=== PATIENT | female | born 1940 | race Caucasian/White ===

== ENCOUNTER 2019-09-24 17:20 | Inpatient (IN) | payer OTHER ==
[~2019-09-24] VITALS: Ht 165.1 cm; Wt 51.7 kg
[2019-09-24 17:00] VITALS: BP 151/80
--- NOTE | 2019-09-24 17:00 | NUR ---
PT ARRIVED VIA AMBULANCE TO ROOM. PT THINKS SHE IS HERE TO GET CHECKED FOR COVID. PT DID KNOW SHE WAS AT [facility] AND THAT IT WAS SEPTEMBER. PT KNOWS HER BIRTHDAY IS COMING UP. PT STATED SHE IS ONE OF 9. SHE ACKNOWLEDGE OF HER HAVING SHORT-TERM MEMORY LOSS. PT RESIDES AT [facility] AND THOUGHT SHE SAW SOME KITTENS UNDER THE BED AND TRIED TO ROUND THEM UP AND FEEL. SHE STATED SHE HAS SEEING KITTENS. PT GETS AROUND VIA W/C. PT ABLE TO BEAR WEIGHT IN ORDER TO GET TO W/C.
--- NOTE | 2019-09-24 17:30 | NUR ---
PT TALKEN OUT TO DINING ROOM VIA W/C. PRIOR TO GOING TO DINING ROOM PT SEEN HUOLEGCOLE ON HER SHELF IN HER ROOM. CONSENTS DONE VIA PHONE WITH DAUGHTER JUSTICE THAT HAS DPOA.
[2019-09-24 19:56] VITALS: BP 136/78
--- NOTE | 2019-09-25 07:59 | NUR ---
Pt triggered for low Massimo score of 9. However, error in computer calculated Massimo value. Correct Massimo score actually > 12 at 14 on admit, with nursing documenting pt not at skin breakdown risk. Weight and BMI both healthy. Will defer at this time, but continue to monitor for any decline in future scores.
[2019-09-25 10:07] VITALS: BP 123/72
[2019-09-25 12:28] VITALS: BP 123/72
--- NOTE | 2019-09-25 13:14 | NUR ---
PATIENT IS ALERT, AWAKE, FORGETFUL, CONFUSED AT TIMES. SHE HAS BEEN UP, AND OUT ON THE UNIT, USES W/C FOR MOBILITY. PTIENT TOOK MORNING MEDICATION WHOLE WITHOUT DIFFICULTY. PATIENT IS EATING MEALS, AND DRINKING FLUID FAIRLY WELL. PATIENT DENIES SUICIDAL/HOMICIDAL IDEATION, NOT ABLE TO APPROPRIATELY RESPOND TO FURTHER ASSESSMENT QUESTIONS DUE TO COGNITIVE IMPAIRMENT. PATIENT DENIES HAVING PHYSICAL PAIN. CHAIR ALERM, YELLOW SOCKS, AND YELLOW SHIRT IN PLACE. PATIENT CONTINUE TO HAVE VISUAL HALLUCINATION "THOSE ARE BUNNIES, AM TRYING TO CATCH THEM". AFFECT IS FLAT, AND BLUNTED, MOOD IS CALM, COOERATIVE WITH CARE. PATIENT NOTED TO COUGH INTERMITTENTLY WHEN DRINKING THIN LIQUID. NO SIGN OF ACUTE DISTRESS NOTED AT THIS TIME, WILL CONTINUE TO REDIRECT, AND MONITOR FOR SAFETY.
[2019-09-25 19:24] LABS: URINE BILIRUBIN NEGATIVE (Negative); URINE BLOOD NEGATIVE (Negative); URINE CLARITY CLEAR; URINE COLOR YELLOW; URINE GLUCOSE-RANDOM* NEGATIVE (Negative); URINE KETONES 1+ (Negative); URINE LEUKOCYTES-REFLEX TRACE (Negative); URINE NITRITE-REFLEX NEGATIVE (Negative); URINE PROTEIN (DIPSTICK) NEGATIVE (Negative); URINE SPECIFIC GRAVITY 1.015 (1.005-1.035)
[2019-09-25 19:26] LABS: SQUAMOUS 0-3 Few /LPF (0-3); URINE WBC-REFLEX 0-5 Rare /HPF (0-5)
[2019-09-25 19:27] LABS: BACTERIA-REFLEX 1-9 Few /HPF (None Seen); CASTS None Seen /LPF (None Seen); CRYSTALS None Seen /LPF (None Seen); URINE RBC None Seen /HPF (0-2)
[2019-09-25 19:34] VITALS: BP 114/70
--- NOTE | 2019-09-26 05:24 | NUR ---
Assumed care of pt @ 1900. Pt calm et cooperative with pleasant demeanor early in shift but became compative et verbally abusive in staffing consultant hours around 0200. Pt was taken out of bed et placed in recliner in dayroom to be watched over by furniture detailer. Took medications whole without difficulty. Ambulates via w/c. Denies SI/HI but does continue to hallucinate kittens. Socialized with peers in dayroom until HS. Currently resting with eyes closed in recliner in dayroom. Will continue to monitor per protocol.
[2019-09-26 07:56] VITALS: BP 133/72
--- NOTE | 2019-09-26 12:34 | NUR ---
PARKER called and left a VM with Cecelia Rico , and faxed updates to Dillon CARRILLO
--- NOTE | 2019-09-26 13:00 | NUR ---
Drew spoke with Trisha and she is frustrated that her mom is here. SW provided reassurance and support. SW updated her on the lab results and meds changes. Trisha wants her mom d/c early next week. Drew completed the intake assessment and TP.
--- NOTE | 2019-09-26 16:16 | NUR ---
DREW recieved a call from Trisha and she was very upset that medications had been added and she wasnt called about it. DREW passed this message to Dr Phillip. Drew attempted to provide reassurance and support.
[2019-09-26 18:43] VITALS: BP 108/64
--- NOTE | 2019-09-26 18:45 | NUR ---
VISIBLE IN DAYROOM AT BREAKFAST TABLE WITH PEERS ON INITIAL ASSESSMENT THIS AM-PLEASANT ON APPROACH-TAKES MEDS WITHOUT RESISTANCE AND DENIES COMPLAINTS DURING AM ASSESSMENT. DENIES PAIN/DISCOMFORT. DENIES SI/SH/HI. DELAYED VERBAL RESPONSES AND POOR EYE CONTACT-FLAT AFFECT. STATES SHE DOES NOT KNOW WHY SHE IS HERE. IS ON FALL PRECAUTIONS-REQUIRES ASSIST OF 1 TO TRANSFER TO/FROM COMMODE AND VOIDED SMALL AMOUNT URINE. AT APPROX. 0915 DIRECTOR BANKING REPORTED THAT SHE HAD A LOOSE STOOL AND SMALL AMOUNT EMESIS CONSISTING OF MOSTLY MUCUS AND PHLEGM-VS CHECKED AND BP LOW AT 89/64 P-68 02 SAT [address] MANUROZINAL BP CHECK AT APPROX 1015 BP 108/64-DENIES DIZZINESS-SKIN W/D. DENIES FURTHER NAUSEA AND REFUSES OFFERS OF JOSLYN STATING "I MJUST WANT TO REST-IS TAKING PO FLUIDS WELL" DID COME OUT OF ROOM AT APPROX 1300 AND ATE LUNCH-NO FURTHER REPORTED N/V. BP RECHECK AT 1700 100/68-P-60. EXELON PATCH REMOVED PER MD ORDER.
[2019-09-26 19:45] VITALS: BP 129/92
--- NOTE | 2019-09-26 22:41 | NUR ---
1900 ASSUMED CARE OF PT AFTER REPORT, AND ROUNDS DONE WITH DAY SHIFT, PT RESTING IN BED DENIES NEED FOR RESTROON, OR PAIN. 1999 BASELINE ASSESSMENT COMPLETED, SEE ASSESSMENT, NO CHANGES NOTED FROM DAY SHIFT, WILL ATTEMPT UA WHEN PT NEEDS TO USE THE RESTROOM, WILL CONTINUE WITH ROUNDS 2129 PT TOOK MEDS WITHOUT DIFFICULTY HOB RAISED TO 90 DEGREES FOR SWALLOWING
[2019-09-27 03:23] LABS: URINE BILIRUBIN 2+ (Negative); URINE BLOOD NEGATIVE (Negative); URINE CLARITY SL CLOUDY; URINE COLOR YELLOW; URINE GLUCOSE-RANDOM* NEGATIVE (Negative); URINE KETONES 2+ (Negative); URINE LEUKOCYTES TRACE (Negative); URINE NITRITE NEGATIVE (Negative); URINE PROTEIN (DIPSTICK) 1+ (Negative); URINE SPECIFIC GRAVITY 1.025 (1.005-1.035)
[2019-09-27 03:25] LABS: ICTOTEST (BILI CONFIRMATORY) Positive (Negative)
[2019-09-27 03:56] LABS: BACTERIA None Seen /HPF (None Seen); CALCIUM OXALATE 0-3 Few /LPF (None Seen); HYALINE CASTS 4-10 Moderate /LPF (None Seen); MUCUS 4-6 Moderate strn/LPF (None Seen); SQUAMOUS 0-3 Few /LPF (0-3); URINE RBC None Seen /HPF (0-2); URINE WBC 0-5 Rare /HPF (0-5)
[2019-09-27 08:21] VITALS: BP 90/52
[2019-09-27 09:33] VITALS: BP 90/52
--- NOTE | 2019-09-27 10:28 | NUR ---
1010 RESUMMED CARE FROM OVERNIGHT SHIFT THIS AM, PATIENT QUIET IN DAY ROOM WAITING ON BREAKFAST. PATIENT ATE BREAKFAST TOOK MEDICATION WITHOUT INCIDENCE. PATIENT ABDOMEN SOFT ROUND BOWEL SOUUNDS PRESENT LUNGS CLEAR. PATIENT DENIES SI/HI/AH/VH AT PRESENT. PATIENT QUIET COOPERATIVE DOES NOT INTERACT WITH OTHER PATIENTS. PATIENT AFTER BREAKFAST THAT SHE WANTED TO LIE DOWN.
[2019-09-27 17:32] VITALS: BP 102/68
[2019-09-27 19:46] VITALS: BP 96/65
[2019-09-27 22:00] VITALS: BP 96/65
--- NOTE | 2019-09-27 22:58 | NUR ---
Patient required re-direction to remain seated in her w/c for safety several times this evening. Patient became physically aggressive by swinging her arms at staff, attempting to bite, scratch and pinch staff. Patient was also verbally aggressive toward staff using vulgar language. Staff remained with patient in dayroom to ensure safety until she retired to bed.
--- NOTE | 2019-09-27 23:55 | NUR ---
Assumed care of patient this pm shift. Patient sitting in dayroom with peers. Patient alert and oriented to self. Patients affect flat. Patient adherent with medications. Patient ambulates in a wheelchair. Patient denies pain. Patient denies hi/si. Patient needs help with toileting and wears a brief. Patients assessment shows clear breath sounds, diminished in the bases, and s1 s2 heard with auscultation. We will continue to monitor per hospital protocol.
[2019-09-28 09:06] VITALS: BP 156/78
[2019-09-28 10:23] VITALS: BP 156/78
--- NOTE | 2019-09-28 16:18 | NUR ---
PARKER recieved a call from Trisha Ferro, Pt's daughter [phone]. Trisha stated she was upset that her mother was given psy meds when she has a UTI. Trisha stated she believes the medication has " completely messed my mother up, she is worn out and I just want to get her back home and settled". Trisha also stated she spoke with the psychiatrist sunday and believed all pysh meds were stopped. Trisha stated that she spoke with a nurse on sunday who stated the Pt was given the psych meds and then spoke with the nurse on Sunday who stated the Pt was not given psy meds. PARKER assured Trisha that her request for Pt to be taken off any psy meds and for Pt to be discharged would be passed to the attending psychiatrist. PARKER assured continued to provide emotional support to Trisha and reassurrance. Trisha had no further questions at this time
[2019-09-28 20:03] VITALS: BP 99/58
[2019-09-28 22:00] VITALS: BP 99/58
--- NOTE | 2019-09-29 04:14 | NUR ---
Assumed care of patient this pm shift. Patient sitting in the mileu with peers at a table by herself, calm and content. Patient alert to self. Patient denies pain. Patient denies hi/si. Patient takes medications whole with fluids. Patient ambulates via wheel chair. Patient is a fall risk. Patient is wearing the proper attire to identify falls risk. Patients assessment shows clear breath sounds, active bowel sounds, and s1 s2 heard with auscultation. We will continue to monitor per hospital protocol.
--- NOTE | 2019-09-29 11:14 | NUR ---
DREW recieved a call from Pt's daughter, Trisha Aguilar @ 11 am. DREW informed that Pt is scheduled for discharge on Sunday and DREW was on the phone with Dillon Montes making arrangements for Pt's return. Trisha stated she felt the Pt needed to go to [facility] stating, " She just did not sound good. She sounds sick and nauseous." DREW informed that order would need to come from the doctor and Drew would speak with the Doctore concerning the matter. Trisha then inquired if she could come and sign Pt out herself. DREW informed that with out the doctors consent that action may be considered against medical advice. DREW again offered to speak withthe dostore concerning the matter. Trisha was okay with this. DREW spoke with Dr. Boss about the matter and contact Dr. Phillip via cell phone. DREW spoke with Dr. Phillip and informed her of Trisha's request. Dr. Phillip was okay with the request and would be in to complete necessary paperwork. DREW recieved a phone call again @ 11:30 am from Trisha. Drew informed Trisha of of Dr. Phillip's being okay with the request. Scheduled a miner pick of 1:00pm.
--- NOTE | 2019-09-29 11:35 | NUR ---
Recieved a call from Dillon Montes @ 11:34 am. PARKER informed them of the conversation with the Pt's daughter, Trisha. PARKER informed that Trisha wants to take Pt to [facility]. PARKER informed that Pt was ready for discharge Sunday and was just needing a COVID test however Trisha wanted to sign Pt out early to take her to [facility].
--- NOTE | 2019-09-29 12:32 | NUR ---
ALERT TO SELF ONLY. VSS. PT DENIES SI/HI/AH/VH. PT HAS BEEN TEARFUL FOR SOME PART OF THE SHIFT STATES SHE WANTS TO GO HOME. PT DID WELL WITH MEDS AND MEALS. PT DID NOT ATTEND ANY GROUPS THIS SHIFT. SPOKE WITH PT DAUGHTER THIS MORNING AND WANTS TO DISCHARGE HER TODAY. WILL CONTINUE TO MONITOR.
[2019-09-29 12:44] VITALS: BP 99/58
[2019-09-29 13:12] VITALS: BP 108/53
== END 2019-09-29 13:16 | disposition home or self-care (01) | DRG 884 ==
LOC: SBH 17:20
PROVIDERS: Hospitalist; Psychiatry & Neurology Psychiatry; ADMIT Psychiatry & Neurology Psychiatry; ATTEND Psychiatry & Neurology Psychiatry
DX: F01.51 Vascular dementia, unspecified severity, with behavioral disturbance (principal); E46 Unspecified protein-calorie malnutrition; F02.81 Dementia in other diseases classified elsewhere, unspecified severity, with behavioral disturbance; G30.9 Alzheimer's disease, unspecified; I10 Essential (primary) hypertension; E03.9 Hypothyroidism, unspecified; G47.00 Insomnia, unspecified; F29 Unspecified psychosis not due to a substance or known physiological condition; F32.9 Major depressive disorder, single episode, unspecified; K21.9 Gastro-esophageal reflux disease without esophagitis; Z90.49 Acquired absence of other specified parts of digestive tract; Z90.710 Acquired absence of both cervix and uterus; Z68.21 Body mass index [BMI] 21.0-21.9, adult; Z88.2 Allergy status to sulfonamides
CPT/HCPCS: 10880